=== PATIENT | male | born 2000 | race Caucasian/White ===

== ENCOUNTER 2022-06-20 01:20 | Emergency (ER) | payer MEDICAID, OTHER ==
[~2022-06-20] VITALS: Ht 172.7 cm; Wt 65.8 kg
[2022-06-20 01:32] VITALS: BP 136/81
--- NOTE | 2022-06-20 01:35 | NUR ---
to lobby a/w bed ambulatory
[2022-06-20 01:55] VITALS: BP 136/81
--- NOTE | 2022-06-20 02:01 | NUR ---
Patient taken to X-ray.
--- NOTE | 2022-06-20 03:14 | NUR ---
PATIENT LEFT WITHOUT BEING SEEN BY DR. Luna. NO FURTHER CARE PROVIDED FOR PATIENT.
== END 2022-06-20 03:14 | disposition left against medical advice (07) ==
LOC: MED 01:20
DX: M79.641 Pain in right hand (principal); Z53.21 Procedure and treatment not carried out due to patient leaving prior to being seen by health care provider; W22.01XA Walked into wall, initial encounter; Y93.89 Activity, other specified; Y92.89 Other specified places as the place of occurrence of the external cause; Y99.8 Other external cause status
CPT/HCPCS: 73130; 99281